=== PATIENT | male | born 1965 | race Caucasian/White ===

== ENCOUNTER 2016-09-19 21:20 | Emergency (ER) | payer OTHER ==
[~2016-09-19] VITALS: Ht 182.9 cm; Wt 86.2 kg
--- NOTE | 2016-09-19 21:28 | ED GENERAL ADULT ---
History of Present Illness General Chief Complaint: General Adult Stated Complaint: SHOULDER PAIN Source: patient Exam Limitations: no limitations Vital Signs & Intake/Output Vital Signs & Intake/Output Vital Signs Date Time Temp Pulse Resp B/P Pulse O2 O2 Flow FiO2 Ox Delivery Rate 09/19 2255 97.4 97 18 139/76 98 Room Air 09/19 2201 97.2 09/19 2139 97.2 98 18 138/106 97 Room Air ED Intake and Output 09/20 0000 09/19 1200 Intake Total Output Total Balance Patient 190 lb Weight Allergies Coded Allergies: No Known Allergies (09/19/16) Triage Nurses Notes Reviewed? yes Onset: Abrupt Duration: hour(s): Timing: single episode today Injury Environment: home Severity: mild, moderate Modifying Factors: Improves With: rest. Worsens With: movement. Associated Symptoms: back pain HPI: 51 yo gentleman h/o rotator cuff tear, presents with left shoulder pain after being arrested by police. He notes, "They swung my arm above me... and that really hurt.... I also have some back pain too... my muscles hurt." He denies chest pain, shortness of breath, or other injury. He is otherwise well. Past History Travel History Traveled to [place] past 21 day No Medical History Any Pertinent Medical History? see below for history Musculoskeletal: left rotator cuff tendonopathy Surgical History Surgical History: none Psychosocial History What is your primary language Occitan Family History Hx Contributory? No Review of Systems Review of Systems Constitutional: Reports: no symptoms. EENTM: Reports: no symptoms. Respiratory: Reports: no symptoms. Cardiovascular: Reports: no symptoms. GI: Reports: no symptoms. Genitourinary: Reports: no symptoms. Musculoskeletal: Reports: no symptoms. Skin: Reports: no symptoms. Neurological/Psychological: Reports: no symptoms. Hematologic/Endocrine: Reports: no symptoms. Immunologic/Allergic: Reports: no symptoms. All Other Systems: Reviewed and Negative Physical Exam Physical Exam General Appearance: well developed/nourished, mild distress Head: atraumatic, normal appearance Eyes: Bilateral: normal appearance. Ears, Nose, Throat: normal pharynx, normal ENT inspection Neck: normal inspection, supple, full range of motion Respiratory: normal breath sounds, chest non-tender, no respiratory distress, quiet respiration, lungs clear Cardiovascular: regular rate/rhythm Gastrointestinal: normal bowel sounds, soft, non-tender, no organomegaly Back: muscle spasm, no vertebral tenderness, right paraspinal muscle spasm. Extremities: diffuse muscular tenderness around left shoulder girdle. normal pulse, light touch, strength. Neurologic/Psych: no motor/sensory deficits, awake, alert, oriented x 3 Reflexes: 1+: bicep (R), bicep (L), knee (R), knee (L). Skin: intact, normal color, warm/dry Core Measures ACS in differential dx? No CVA/TIA Diagnosis: No Severe Sepsis Present: No Septic Shock Present: No Progress Differential Diagnoses I considered the following diagnoses in my evaluation of the patient: rotator cuff disease vs fx, vs sprain Plan of Care: Orders Procedure Date/time Status EKG 09/19 2122 Active Diagnostic Imaging: Viewed by Me: Radiology Read. Discussed w/RAD: Radiology Read. Radiology Impression: left shoulder... no fx. bone spur noted... full report below. Initial ED EKG: normal axis, normal intervals, normal p-waves, normal QRS complex, normal sinus rhythm Departure Departure Disposition: HOME OR SELF CARE Condition: Stable Clinical Impression Primary Impression: Rotator cuff arthropathy Secondary Impressions: Back pain Referrals: UNKNOWN Departure Forms: Customer Survey General Discharge Information Comments 09/19/16.. pt resting comfortably after ibuprofen.... negative xrays... pt safe for discharge in company of police. PATIENT: RACHID BLANDON PRESENT AGE: 51 PATIENT ACCOUNT NO: [id number] : 65 LOCATION: [facility] ORDERING PHYSICIAN: LEIGH VELA MD SERVICE DATE: 09/19/16 EXAM TYPE: RAD - XRY-SHOULDER COMPLETE-LEFT EXAMINATION: XR SHOULDER, LEFT CLINICAL INFORMATION: Left shoulder pain. COMPARISON: No relevant prior studies are available for comparison. TECHNIQUE: Internal rotation, Grashey, and scapular Y views of the left shoulder. FINDINGS: The bones and soft tissues are normal. No fracture. Glenohumeral and acromioclavicular alignment is anatomic with normal joint space. Anterior subacromial spur. No abnormal soft tissue calcifications. IMPRESSION: Anterior subacromial spur. No fracture or dislocation. DICTATED BY: CYNTHIA LATHAM MD DATE/TIME DICTATED:09/19/162226 PRINTING TECHNICIAN:[email or web address] DATE/TIME TRANSCRIBED:09/19/16 / 7 CONFIDENTIAL, DO NOT COPY WITHOUT APPROPRIATE AUTHORIZATION. <Electronically signed in Other Vendor System> SIGNED BY: CYNTHIA LATHAM MD 4 Critical Care Note Critical Care Note Critical Care Time: non-applicable
--- NOTE | 2016-09-19 22:34 | RADIOLOGY REPORT ---
EXAMINATION: XR SHOULDER, LEFT CLINICAL INFORMATION: Left shoulder pain. COMPARISON: No relevant prior studies are available for comparison. TECHNIQUE: Internal rotation, Grashey, and scapular Y views of the left shoulder. FINDINGS: The bones and soft tissues are normal. No fracture. Glenohumeral and acromioclavicular alignment is anatomic with normal joint space. Anterior subacromial spur. No abnormal soft tissue calcifications. IMPRESSION: Anterior subacromial spur. No fracture or dislocation.
[2016-09-19 22:55] VITALS: BP 139/76
== END 2016-09-19 23:04 ==
LOC: ERH 21:20
DX: M19.012 Primary osteoarthritis, left shoulder (principal); M54.9 Dorsalgia, unspecified
CPT/HCPCS: 73030-LT; 93005; 93010